=== PATIENT | female | born 1990 | race African-American/Black ===

== ENCOUNTER 2017-07-04 07:40 | Emergency (ER) | payer SELFPAY ==
[~2017-07-04] VITALS: Ht 157.5 cm; Wt 77.1 kg
[2017-07-04 07:43] VITALS: BP 136/95
[2017-07-04] MEDS ORDERED: IBUPROFEN 400 MG TABLET ONE (08:00)
[2017-07-04] MEDS ORDERED: IBUPROFEN 400 MG TABLET PO ONE (08:00)
== END 2017-07-04 09:09 | disposition home or self-care (01) ==
LOC: ER 07:42
DX: S60.112A Contusion of left thumb with damage to nail, initial encounter (principal); W23.0XXA Caught, crushed, jammed, or pinched between moving objects, initial encounter; Y93.89 Activity, other specified; Y92.89 Other specified places as the place of occurrence of the external cause; Y99.8 Other external cause status
CPT/HCPCS: 73140-TC; A4606; A6402; Z7610

== ENCOUNTER 2018-08-18 02:24 | Emergency (ER) | payer SELFPAY ==
[~2018-08-18] VITALS: Ht 157.5 cm; Wt 72.6 kg
--- NOTE | 2018-08-18 02:50 | NUR ---
Pt BIBSELF FROM HOME WITH FRIEND AT BEDSIDE. Pt C/O LEFT SIDED MOUTH/JAW/GUM LINE TOOTHACHE FOR THE PAST WEEK. Pt IS A/OX4, VERBAL, ABLE TO MAKE NEEDS KNOWN. PER Pt STATEMENT HAS BEEN HAVING CONTINOUS LEFT SIDED MOUTH PAIN FOR THE PAST FEW DAYS. Pt STATES SHE HAS NEVER HAD HER WISDOM TEETH PULLED OUT AND DENIES HAVING ANY RECENT DENTAL WORK. Pt IS AFEBRILE. DENIES N/V/D. Pt BEING SEEN BY MD AT BEDSIDE. WILL CONTINUE TO MONITOR Pt's CONDITION. WILL CARRY OUT ANY MD ORDERS.
[2018-08-18] MEDS ORDERED: HYDROCODONE/APAP 10/325MG 1 EA TABLET PO ONE (03:00)
[2018-08-18] MEDS ORDERED: PENICILLIN G BENZATHINE 2.4 MMU/4 ML ML IM ONE ×3 (03:00→03:30)
[2018-08-18] MEDS ORDERED: ONDANSETRON 4 MG TAB.RAPDIS SL ONE (03:00)
[2018-08-18] MEDS ORDERED: ONDANSETRON 4 MG TAB.RAPDIS ONE (03:05)
[2018-08-18] MEDS ORDERED: HYDROCODONE/APAP 10/325MG 1 EA TABLET ONE (03:06)
--- NOTE | 2018-08-18 03:35 | NUR ---
ALL ORDERED MEDS GIVEN
--- NOTE | 2018-08-18 03:36 | NUR ---
ADMINISTERED PENICILLIN G BENZATHINE 4ML IM VIA RT UPPER BUTTOCK.
--- NOTE | 2018-08-18 03:59 | NUR ---
Patient discharged to home in stable condition. Written and verbal after care instructions given. Patient verbalizes understanding of instruction. Patient left facility on foot with steady gait. Friend at bedside who will take pt back home. No s/s of acute distress or sob noted. No IV access placed on pt. All ordered meds given. Priscription from given & explained to pt. VS stable.
[2018-08-18 04:02] VITALS: BP 114/68
== END 2018-08-18 04:02 | disposition home or self-care (01) ==
LOC: ER 02:27
DX: K08.89 Other specified disorders of teeth and supporting structures (principal)
CPT/HCPCS: 96372; 99283; J0558; Q0162